=== PATIENT | male | born 1980 | race Caucasian/White ===

== ENCOUNTER 2022-02-19 09:31 | Outpatient (CLI) | payer OTHER ==
--- NOTE | 2022-02-19 11:21 | MRI Report ---
PROCEDURE: Lumbar Spine W/O INDICATIONS: LOW BACK PAIN TECHNIQUE: Noncontrast sagittal T1 spin echo and T2 fast echo, sagittal STIR, axial T1 and T2 fast spin echo thr ough the lumbar spine. In cases with scoliosis, additional coronal T2 fast spin echo may be performe d. COMPARISON: None. FINDINGS: Image quality: Excellent. Alignment and Curvature: There is normal bony alignment. Bone Marrow: Marrow is of normal overall signal. No acute vertebral body compression fractures. Spinal Cord: Conus medullaris terminates at the L1 level. Visualized cord demonstrates normal signa l and size. Paraspinous Soft Tissues: No paravertebral masses. T12-L1: Normal in appearance. L1-L2: No significant abnormality is seen. L2-L3: Mild loss of disc height and disc signal are seen. Mild to moderate disc bulge is seen. M ild facet hypertrophy is seen. Moderate bilateral neural foraminal narrowing is seen. Minimal cent ral canal narrowing is seen. L3-L4: Moderate loss of disc height and signal are seen. Mild to moderate disc bulge is seen, which is eccentric to the left. Mild facet hypertrophy is seen. Moderate bilateral neuroforaminal narrow ing can be seen, left worse than right. Mild central canal narrowing is seen. L4-L5: Moderate loss of disc height and signal are seen. Reactive marrow endplate changes are seen , which are on hypointense on T1-weighted and hyperintense T2-weighted imaging, with associated inc reased STIR signal. These imaging findings are most consistent with endplate edema (Modic type 1 tobias ge). Moderate disc bulge is seen, which is slightly eccentric to the right. A superimposed central disc protrusion is seen. Note is made of an annular fissure posteriorly. At least moderate facet hy pertrophy can be seen, left worse than right. Moderate to severe bilateral neural foraminal narrowing can be seen, with associated compression upon the exiting nerve roots. Minimal central canal narrow ing is seen. L5-S1: Mild to moderate loss of disc height and disc signal can be seen. Mild to moderate disc bulg e is seen, which is eccentric to the left. There is also a central/right disc protrusion, which angela nues into the right foraminal region. Note is made of an annular fissure posteriorly. There is at least moderate bilateral neuroforaminal narrowing seen. Compression is seen upon the exiting nerve ro ots. Mild central canal narrowing is seen. IMPRESSION: Lower lumbar spine degenerative changes are seen, which are worst at the L4-L5 level. Reviewed by: Cortes Escobedo MD on 02/19/2022 10:19 AM [facility]ITA Approved by: Cortes Escobedo MD on 02/19/2022 10:19 AM [facility] Station ID: [id number]
== END 2022-02-19 09:32 | disposition home or self-care (01) ==
LOC: DI 09:31
DX: M47.816 Spondylosis without myelopathy or radiculopathy, lumbar region (principal); M51.36 Other intervertebral disc degeneration, lumbar region; M48.061 Spinal stenosis, lumbar region without neurogenic claudication; M51.26 Other intervertebral disc displacement, lumbar region; M51.27 Other intervertebral disc displacement, lumbosacral region; M51.37 Other intervertebral disc degeneration, lumbosacral region; M48.07 Spinal stenosis, lumbosacral region